=== PATIENT | female | born 1965 | race Caucasian/White ===

== ENCOUNTER → 2020-04-04 11:30 | Outpatient (CLI) | payer OTHER, SELFPAY ==
--- NOTE | ~2020-04-04 | CT_ITS ---
EXAMINATION: CT abdomen pelvis wo/w con DATE: 04/04/2020 11:59 INDICATION: Flank pain, history of kidney stones TECHNIQUE: Computed tomography (CT) of the abdomen and pelvis was performed without intravenous contr ast. CT of the abdomen and pelvis was then performed with a total of 100 mL Omnipaque 350 intravenous contrast. The dose-length product (DLP) was 2015.77 mGy-cm. Maximum intensity projection 3D-reconstr uctions of the collecting system were created by the technologist at a separate workstation. Automate d exposure control and iterative reconstruction technique were employed. COMPARISON: None FINDINGS: The lung bases are clear. The heart size is normal. The gallbladder is surgically absent. T he liver, spleen, pancreas, and adrenal glands are normal. Cysts of the kidneys measure up to 2.7 cm on the right. Punctate nonobstructing stones are present in the left kidney. No stones are identified in the right kidney, the ureters, or bladder. There is no hydronephrosis or hydroureter. No patholog ically enlarged abdominal or pelvic lymph nodes are identified. There is no free intraperitoneal gas or evidence of bowel obstruction. IMPRESSION: 1. Nonobstructing left nephrolithiasis. No CT correlate for the patient's symptoms. Reviewed, dictated and finalized at location A. IMPRESSION: 1. Nonobstructing left nephrolithiasis. No CT correlate for the patient's sympt oms.
[2020-04-04 11:50] LABS: Estimated Glomerular Filt Rate > 60
== END ==
PROVIDERS: Visit Provider Internal Medicine
DX: N20.0 Calculus of kidney (principal)
CPT/HCPCS: 36415; 74178; Q9967